=== PATIENT | female | born 1980 | race Caucasian/White ===

== ENCOUNTER 2018-10-27 01:16 | Emergency (ER) | payer MEDICARE, OTHER ==
[2018-10-27 01:29] VITALS: BP 99/71; PULSE 97
--- NOTE | 2018-10-27 02:04 | EDM.PDOC ---
ED HPI GENERAL MEDICAL PROBLEM - General Chief Complaint: General Stated Complaint: post op pain Time Seen by Provider: 10/27/18 01:46 Source of Information: Reports: Patient, Family History Limitations: Reports: No Limitations - History of Present Illness INITIAL COMMENTS - FREE TEXT/NARRATIVE: 37-year-old white female presents tonight to the ER with lower abdominal pain and right-sided back pain ongoing 3 days worse tonight after about 6 PM after eating supper describes the pain as a sharp stabbing 6-7 out of 10. Patient is status post surgery from first to October secondary to bilateral ovarian cyst I&D with a hemorrhagic cyst removal patient is currently on Coumadin secondary to CHIROPRACTIC CARE deficiency she was bridged 4 days on heparin until her INR was 2.0 she saw her primary care provider this past and was told she had blood clots in her belly that were superficial and was told it was nothing to worry about her INR was 2.0 as well patient states she has been eating and drinking okay and is actively drinking Mountain Dew tonight she has been moving her bowels normally and move today she denies any bleeding with bowel movements of dark tarry stools no bright red blood she has mild nausea but no vomiting she denies any fever or chills dysuria and has been doing fine since. She also complains of a mild sore throat 2 days she denies any pain with swallowing in the past she has had one episode of overdose of Coumadin that was several years ago Location: Reports: Abdomen, Back Quality: Reports: Sharp, Throbbing Severity: Moderate Improves with: Reports: None Worsens with: Reports: None Associated Symptoms: Reports: No Other Symptoms Abdomen Pain Score (Numeric/FACES): 6 - Related Data Allergies Allergy/AdvReac Type Severity Reaction Status Date / Time morphine AdvReac Severe Hallucinations, Verified 10/27/18 01:18 nausea/vomiting ampicillin AdvReac Nausea and Verified 10/27/18 01:18 Vomiting codeine AdvReac Vomiting Verified 10/27/18 01:18 digoxin AdvReac Blurred Verified 10/27/18 01:18 Vision doxycycline AdvReac Nausea and Verified 10/27/18 01:18 Vomiting flecainide AdvReac Blurred Verified 10/27/18 01:18 Vision Macrolide Antibiotics AdvReac Nausea and Verified 10/27/18 01:18 Vomiting oxycodone [From OxyContin] AdvReac Nausea and Verified 10/27/18 01:18 Vomiting pregabalin [From Lyrica] AdvReac Dizziness Verified 10/27/18 01:18 promethazine [From Phenergan] AdvReac Nausea and Verified 10/27/18 01:18 Vomiting sulfamethoxazole AdvReac Vomiting Verified 10/27/18 01:18 [From Bactrim] trazodone AdvReac Nausea and Verified 10/27/18 01:18 fainting trimethoprim [From Bactrim] AdvReac Vomiting Verified 10/27/18 01:18 coban Allergy Rash Uncoded 10/27/18 01:18 Home Meds: Home Meds Hydrocodone/Acetaminophen [Hydrocodon-Acetaminophn 10-325] 1 tab PO TID PRN [History] Warfarin [Coumadin] 5 mg PO ASDIRECTED 04/29/15 [History] Albuterol [IJD: Albuterol HFA] 2 puff INH Q6H PRN 04/04/17 [History] Biotin 10 mg PO DAILY 04/04/17 [History] Melatonin 10 mg PO BEDTIME 04/04/17 [History] Warfarin [Coumadin] 7.5 mg PO ASDIRECTED 04/05/17 [History] DULoxetine [Cymbalta] 30 mg PO DAILY 01/28/18 [History] DULoxetine [Cymbalta] 60 mg PO DAILY 01/28/18 [History] Vitamin D3/Vitamin K2 [D3 + K2 Dots 1,000 Unit] 2 each PO DAILY #60 tab.rapdis 02/15/18 [Rx] FLUoxetine HCl [Fluoxetine HCl] 40 mg PO DAILY 10/27/18 [History] Pantoprazole Sodium 40 mg PO DAILY 10/27/18 [History] tiZANidine [Zanaflex] 8 mg PO BEDTIME 10/27/18 [History] Past Medical History HEENT History: Reports: Other (See Below) Other HEENT History: Chronic pharyngitis; Chronic tonsillitis; Fuchs'/ Endothelial corneal dystrophy; Persistent lymphocytic hyperplasia of throat; Reactive lymphoid hyperplasia; Tongue pain with biopsy of right tongue base. Cardiovascular History: Reports: Afib, Arrhythmia Other Cardiovascular History: Has a implanted loop recorder. Respiratory History: Reports: Asthma, Other (See Below) Other Respiratory History: Hx cold/heat induced bronchospasm; Gastrointestinal History: Reports: Chronic Constipation, Irritable Bowel Syndrome, Other (See Below) Other Gastrointestinal History: Chronic abdominal pain; Benign neoplasm of stomach; Dyspepsia; Hx of hemorrhage of rectum and anus Genitourinary History: Reports: Other (See Below) Other Genitourinary History: Upper GI/esophageal/throat lymphoid hyperplasia requiring multiple surgeries as below [employer]HICLE [employer]SEM[employer]Y INSPECTOR History: Reports: Dysfunctional Uterine Bleeding, Other VEHICLE ASSEMBLY INSPECTOR History: Bilateral ovarian cysts, surgical menopause secondary to dysfunctional uterine bleeding, Full term without complications during pregnancies or deliveries Musculoskeletal History: Reports: Arthritis, Back Pain, Chronic, Fibromyalgia, Other (See Below) Other Musculoskeletal History: Bilateral shoulder pain; Chronic fatigue; Chronic leg pain; Chronic pain syndrome; Chronic SI joint pain; Myofascial muscle pain; Radiculopathy of cervical spine; Sciatica Neurological History: Reports: Migraines Other Neuro History: Chronic peripheral neuropathy in her fingers and feet bilaterally secondary to her osteoarthritis, chronic dizziness secondary to her hypotension Psychiatric History: Reports: Anxiety, Depression, Suicidal Ideation Other Psychiatric History: Chronic narcotic use/addiction, psychiatric hospitalization in 2008 secondary to attempted overdose at that time. OD attempt January 2018 Endocrine/Metabolic History: Reports: Other (See Below) Other Endocrine/Metabolic History: Glucocorticoid deficiency Hematologic History: Reports: Anemia, Anticoagulation Therapy, Bleeding Disorder , Blood Transfusion(s), Other (See Below) Other Hematologic History: Protein S deficiency Immunologic History: Reports: None Oncologic (Cancer) History: Reports: None Dermatologic History: Reports: Cellulitis, Seborrheic Dermatitis - Infectious Disease History Infectious Disease History: Reports: Chicken Pox - Past Surgical History Head Surgeries/Procedures: Reports: None HEENT Surgical History: Reports: Adenoidectomy, Myringotomy w Tube(s), Tonsillectomy, Other (See Below) Other HEENT Surgeries/Procedures: Bilateral posterior pharynx bx; Multiple throat procedures for recurrent lymph tissue x6; Lingual tonsillectomy revision ; Right tongue base biopsy; Repeat tonsillectomy at age 22, initial T&A at age 6 GI Surgical History: Reports: Colonoscopy, EGD Female Surgical History: Reports: D&C, Hysterectomy - Past Imaging History Past Imaging History: Reports: Angiography, Cardiac Echo, CAT Scan, Event Monitor, Holter Monitor, MRI, Stress Testing, Swallow Study, Upper GI X-Ray/ Series, Venous Doppler, Other (See Below) Social & Family History - Family History HEENT: Reports: Glaucoma, Other (See Below) Other HEENT Family History: Glaucoma in maternal and paternal grandparents Cardiac: Reports: Afib, Arrhythmia, Blood Clots/VTE/DVT, Bypass, CAD, High Cholesterol, Hypertension, ID, Syncope, Other (See Below) Other Cardiac Family History: Atrial fibrillation in mother, maternal grandmother with bundle branch block, mother with PSVT, DVT in maternal grandmother, hyperlipidemia in parents, hypertension in parents and both maternal and paternal grandparents, maternal aunt with ID and CABG at age 30, paternal grandfather with fatal ID at age 73, maternal grandmother with ID in her 50s, syncope and her parents, Respiratory: Reports: Asthma, COPD, Sleep Apnea, Other (See Below) Other Respiratory Family Hisory: Mother with asthma, maternal grandmother with COPD, mother with sleep apnea GI: Reports: Colon Polyps, Inflammatory Bowel Disease, Irritable Bowel Syndrome , Other (See Below) Other GI Family History: Mother with colonic polyps, ulcers colitis in mother, parents with irritable bowel syndrome : Reports: Diabetic Nephropathy, Other (See Below) Other Family History: Diabetic nephropathy in mother OBGYN: Reports: None Musculoskeletal: Reports: Fibromyalgia, Gout, RA, Other (See Below) Other Musculoskeletal Family History: Mother and paternal aunt with fibromyalgia , father with gout, maternal grandmother with rheumatoid arthritis Neurological: Reports: Alzheimers Disease, Migraines, Neuropathy, Diabetic, Other (See Below) Other Neurological Family History: maternal grandmother with fatal Alzheimer's disease at age 78, mother with migraine headaches, mother with diabetic neuropathy Psychiatric: Reports: Anxiety, Depression, Psych Hospitalization(s), Suicide Attempt, Other (See Below) Other Psychiatric Family History: Parents, brother, and maternal grandparents with anxiety depression disorder, brother with psychiatric hospitalization secondary to suicidal attempt Endocrine/Metabolic: Reports: Diabetes, type II, IDDM, Other (See Below) Other Endocrine/Metabolic Family History: IDDM in mother and maternal grandfather Hematologic: Reports: None Immunologic: Reports: None Dermatologic: Reports: Eczema, Other (See Below) Other Dermatologic Family History: Son and daughter with eczema Oncologic: Reports: Bone, Breast, Colon, Lymphoma, Pancreatic, Other (See Below) Other Oncologic Family History: Paternal great aunt with fatal colon cancer in her 70s, maternal grandmother with breast cancer in her 50s, maternal great grandmother with fatal breast cancer in her 30s, paternal grandmother with fatal colon cancer in her 50s, paternal grandfather with fatal lymphoma in his 60s, maternal aunt with fatal pancreatic cancer at age 56 - Tobacco Use Smoking Status *Q: Never Smoker - Caffeine Use Caffeine Use: Reports: Soda - Living Situation & Occupation Living situation: Reports: , with Family Occupation: Disabled ED ROS GENERAL - Review of Systems Review Of Systems: See Below Constitutional: Reports: No Symptoms. Denies: Fever, Chills, Malaise, Weakness , Fatigue, Decreased Appetite HEENT: Reports: Throat Pain. Denies: Nose Pain, Sinus Problem, Throat Swelling Respiratory: Reports: No Symptoms Cardiovascular: Reports: No Symptoms Endocrine: Reports: No Symptoms GI/Abdominal: Reports: Abdominal Pain, Nausea. Denies: Anorexia, Black Stool, Bloody Stool, Constipation, Diarrhea, Decreased Appetite, Difficulty Swallowing , Distension, Hematemesis, Hematochezia, Melena, Stool Incontinence, Vomiting : Reports: No Symptoms Musculoskeletal: Reports: Back Pain Skin: Reports: No Symptoms Neurological: Reports: No Symptoms Psychiatric: Reports: No Symptoms Hematologic/Lymphatic: Denies: Anemia, Easy Bleeding, Easy Bruising, Swollen Glands Immunologic: Reports: No Symptoms ED EXAM, GENERAL - Physical Exam Exam: See Below Exam Limited By: No Limitations General Appearance: Alert, WD/WN, No Apparent Distress, Other (Patient is currently sitting up on the chair at bedside no acute distress talking laughing with father actively) Eye Exam: Bilateral Eye: EOMI, PERRL Nose: Normal Inspection, Normal Mucosa, No Blood Throat/Mouth: Normal Inspection, Normal Lips, Normal Teeth, Normal Gums, Normal Oropharynx, Normal Voice, No Airway Compromise, Other (No edema and no exudate in-line uvula lower erythema or cryptic tonsils) Head: Atraumatic, Normocephalic, Other Neck: Normal Inspection, Supple, Non-Tender, Full Range of Motion Respiratory/Chest: No Respiratory Distress, Lungs Clear, Normal Breath Sounds, No Accessory Muscle Use, Chest Non-Tender Cardiovascular: Normal Peripheral Pulses, Regular Rate, Rhythm, No Edema, No Gallop, No JVD GI/Abdominal: Normal Bowel Sounds, Soft, No Organomegaly, No Distention, No Abnormal Bruit, No Mass, Pelvis Stable, Other (Abdomen is soft no guarding no rebound no peritoneal signs there's centralized healing ecchymosis to the lower pelvic area bilaterally 3 trocar jean baptiste are noted incision sites are well healing from the trocar jean baptiste no signs of any infection there as noted on the right lower A2 centimeter fixed nodule under the incision site suspect to be superficial hematoma there is no CVA tenderness nor flank ecchymosis). No: Non- Tender Back Exam: Normal Inspection, Full Range of Motion. No: CVA Tenderness (L), CVA Tenderness (R), Decreased Range of Motion Extremities: Normal Inspection, Normal Range of Motion, Non-Tender, No Pedal Edema Neurological: Alert, Oriented, CN II-XII Intact, Normal Cognition, Normal Gait, No Motor/Sensory Deficits Psychiatric: Normal Affect, Normal Mood Skin Exam: Warm, Dry, Intact, Normal Color, No Rash, Ecchymosis (Ecchymosis as listed above). No: Erythema, Petechiae Lymphatic: No Adenopathy Course - Vital Signs Text/Narrative:: CBC BMP and coags were ordered along with a CT abdomen and pelvis secondary to patient's history and possible retroperitoneal hematoma with the patient being on Coumadin although abdominal exam appears to be benign CBC BMP within normal limits INR 2.9 CT abdomen and pelvis impression constipation suspect mild cystitis distended bladder The patient will be discharged at this time told to follow up with primary care provider and surgeon Last Recorded V/S: Last Vital Signs Temp 36.8 C 10/27/18 01:26 Pulse 97 10/27/18 01:26 Resp 18 10/27/18 01:26 BP 99/71 10/27/18 01:26 Pulse Ox 97 10/27/18 01:26 - Orders/Labs/Meds Orders: Active Orders 24 hr Category Date Time Status Abdomen Pelvis w Cont [CT] Stat Exams 10/27/18 01:57 Taken Labs: Laboratory Tests 10/27/18 10/27/18 10/27/18 Range/Units 02:02 02:02 02:02 WBC 8.8 (4.0-10.0) x10^3/uL RBC 4.24 (4.00-5.50) x10^6/uL Hgb 13.7 (12.0-16.0) g/dL Hct 40.5 (33.0-47.0) % MCV 95.5 H (78.0-93.0) fL MCH 32.3 H (26.0-32.0) pg MCHC 33.8 (32.0-36.0) g/dL RDW Coeff of Jewel 12.2 (10.0-15.0) % Plt Count 354 D (130-400) x10^3/uL Neut % (Auto) 67.9 (50.0-80.0) % Lymph % (Auto) 21.5 L (25.0-50.0) % [place] % (Auto) 9.5 (2.0-11.0) % Eos % (Auto) 0.8 (0.0-4.0) % Baso % (Auto) 0.3 (0.2-1.2) % PT 32.9 H (10.0-12.8) SEC INR 2.9 (2.0-3.5) Sodium 137 (136-145) mmol/L Potassium 3.5 (3.5-5.1) mmol/L Chloride 100 (98-107) mmol/L Carbon Dioxide 25 (21-32) mmol/L Anion Gap 15.5 (10-20) mmol/L BUN 13 (7-18) mg/dL Creatinine 0.7 (0.55-1.02) mg/dL Est Cr Clr Drug Dosing TNP Estimated GFR (MDRD) > 60 Glucose 101 (74-106) mg/dL Calcium 9.6 (8.5-10.1) mg/dL Meds: Medications Discontinued Medications Generic Name Dose Route Start Last Admin Trade Name Freq PRN Reason Stop Dose Admin Iopamidol 100 ml 10/27/18 03:25 10/27/18 03:36 Isovue-300 (61%) IVPUSH 10/27/18 03:26 100 ml ONETIME ONE Administration Departure - Departure Time of Disposition: 04:25 Disposition: Home, Self-Care 01 Condition: Good Clinical Impression: Constipation, High risk medication use Abdominal pain Qualifiers: Abdominal location: generalized Qualified Code(s): R10.84 - Generalized abdominal pain - Discharge Information Referrals: PCP,Unobtain [Primary Care Provider] - Forms: ED Department Discharge - Problem List & Annotations (1) Constipation SNOMED Code(s): 88056672 Code(s): K59.00 - CONSTIPATION, UNSPECIFIED Status: Acute Current Visit: Yes (2) High risk medication use SNOMED Code(s): 007219415, 868483425 Code(s): Z79.899 - OTHER NURSING HOME (CURRENT) DRUG THERAPY Status: Acute Current Visit: Yes (3) Abdominal pain SNOMED Code(s): 33118550 Code(s): R10.9 - UNSPECIFIED ABDOMINAL PAIN Status: Chronic Priority: High Current Visit: Yes Annotation/Comment:: Strict nonspecific abdominal pain with chronic narcotic use as above. No significant clinical findings with normal x-rays and blood work today. Scurry diet for now with close observation by her regular providers Qualifiers: Abdominal location: generalized Qualified Code(s): R10.84 - Generalized abdominal pain - My Orders Last 24 Hours: My Active Orders 10/27/18 01:57 Abdomen Pelvis w Cont [CT] Stat - Assessment/Plan Last 24 Hours: My Active Orders 10/27/18 01:57 Abdomen Pelvis w Cont [CT] Stat
[2018-10-27 02:55] LABS: ANION GAP 15.5 mmol/L (10-20); CHLORIDE,CL 100 mmol/L (98-107); SODIUM,NA 137 mmol/L (136-145)
[2018-10-27] MEDS ORDERED: Iopamidol 612 MG/ML 100 ML Bottle IVPUSH ONE (03:25)
--- NOTE | 2018-10-27 08:03 | CT ---
[id number] CT/CT Abdomen Pelvis W IV EXAM: CT Abdomen Pelvis W IV CLINICAL DATA: ABD PAIN ON COUMADIN AND HAS CS DEF. COMPARISON STUDY: None. FINDINGS: Lung bases are clear. Liver, spleen, gallbladder, pancreas, adrenal glands, and kidneys are unremarkable. Moderate colonic stool burden. Correlate for constipation. No small bowel obstruction or inflammation. Adnexal regions are unremarkable. Distended urinary bladder. Urinary bladder is otherwise unremarkable. Nabothian Cyst in the cervix. Trace free fluid the pelvis, within normal physiologic limits for reproductive age female. Stranding and soft tissue density in the subcutaneous soft tissues of the lower abdomen. Findings are nonspecific and likely sequela of prior surgery. Vascular stent in the left common iliac artery. Abdominal aorta is unremarkable. Changes of spondylosis diffusely throughout the spine. IMPRESSION: Other than possible changes of constipation. No significant abnormality identified in the abdomen or pelvis. Freddy Aly MD 10/27/18 0802 Thank you for allowing us to participate in the care of your patient.
== END 2018-10-27 04:48 | disposition home or self-care (01) ==
LOC: VM.ED 01:16
DX: K59.00 Constipation, unspecified (principal); I48.91 Unspecified atrial fibrillation; F41.9 Anxiety disorder, unspecified; F32.9 Major depressive disorder, single episode, unspecified; Z79.01 Long term (current) use of anticoagulants; Z79.899 Other long term (current) drug therapy
CPT/HCPCS: 74177; 80048; 85025; 85610; 99284; Q9967; 36415